=== PATIENT | male | born 1970 | race Caucasian/White ===

== ENCOUNTER 2019-02-21 15:32 | Emergency (ER) | payer MEDICARE, SELFPAY ==
[2019-02-21 15:37] VITALS: BP 116/80; PULSE 81; RESP 16; TEMP 36.9; O2SAT 98; BMI 21.6
[2019-02-21 16:05] VITALS: BP 120/75; PULSE 77; RESP 14; O2SAT 97
--- NOTE | 2019-02-21 16:24 | EKG12_ITS ---
Test Reason : CP Blood Pressure : / mmHG Vent. Rate : 075 BPM Atrial Rate : 075 BPM P-R Int : 140 ms QRS Dur : 108 ms QT Int : 386 ms P-R-T Axes : 042 105 084 degrees QTc Int : 431 ms Sinus rhythm with occasional Premature ventricular complexes Rightward axis Borderline ECG Confirmed by CASSANDRA HASTINGS, ETIENNE ([id number]), acquisition editor GEOFFREY LINTON ([id number]) on 02/23/2019 2:06:55 PM Referred By: Francoise Martínez Confirmed By:ETIENNE TRUJILLO MD
--- NOTE | 2019-02-21 16:25 | RAD_ITS ---
STUDY: X-RAY CHEST REASON FOR EXAM: Male, 49 years old. Cough, chest pain. TECHNIQUE: PA and lateral chest. COMPARISON: 07/30/2014. FINDINGS: The lungs are clear and expanded. There is no demonstrated pleural abnormality. Normal size heart. Normal mediastinum and lukasz. Normal visualized pulmonary arteries. Normal visualized aortic arch and descending thoracic aorta. Mild thoracic dextroscoliosis. Straightening of the normal thoracic kyphosis. Soft tissues and bony structures are otherwise unremarkable. RAD/Chest PA and Lateral IMPRESSION: Normal x-ray examination of the chest. Electronically Signed: Georgia Block MD at 16:54 EST Tel , Service support ,
[2019-02-21 16:48] LABS: Absolute Lymphocyte Count 1.83 X10^3/uL (0.83-4.51); Absolute Neutrophil Count 5.8 X10^3/uL (2.0-7.7); Basophil# 0.06 X10^3/uL; Basophil% 0.7 % (0-1); Eosinophil# 0.05 X10^3/uL; Eosinophils% 0.6 % (0-5); Hematocrit 41.6 % (40-54); Hemoglobin 14.2 g/dL (13.0-16.5); Lymphocyte # 1.83 X10^3/ul (4.0); Lymphocyte % 22.2 % (19-41); Mean Corp Hgb Conc 34.1 g/dL (32-36); Mean Corpuscular Hgb 32.8 pg (27.0-32.0); Mean Corpuscular Volume 96.1 fL (80-94); Monocyte% 6.1 % (0-10); NRBC Flagged by Analyzer 0 % (0-5); Neutrophil # 5.79 X10^3/uL (2.7-7.7); Neutrophil % 70.2 % (47-70); Platelet Count 349 K/mm3 (150-450); RBC Distribution Width CV 12.9 % (11.6-14.6); RBC Distribution Width SD 46.2 fl (35.1-43.9); Red Blood Count 4.33 M/mm3 (4.6-6.2); White Blood Count 8.3 K/mm3 (4.4-11.0)
[2019-02-21 17:02] LABS: Anion Gap 4 (5-15); BUN 13 mg/dL (7-18); BUN/Creat Ratio 12.4 RATIO (10-20); Calcium,Total 9.5 mg/dL (8.5-10.1); Chloride 108 mmol/L (98-107); Creatinine, Serum 1.05 mg/dL (0.70-1.30); EST Glomerular Filtration Rate 80 mL/min (>60); Est Glom Filt Rate - Afr Amer 97 mL/min (>60); Estimated Creatinine Clearance 85.56 ml/min; Glucose 156 mg/dL (74-106); Potassium 3.8 mmol/L (3.5-5.1); Sodium Level 140 mmol/L (136-145)
[2019-02-21 17:07] VITALS: BP 107/70; PULSE 69; RESP 13; O2SAT 99
[2019-02-21] MEDS: 0.9% Normal Saline 1,000 ML 999 ML IV (17:07)
--- NOTE | 2019-02-21 17:54 | ED.DCSUM_ITS ---
- ER Visit Summary Date of Service: 02/21/19 Chief Complaint: Cough and chest pain History of Present Illness: The patient is a [address] villarreal. He reports he has a cough began 1 month ago. Is productive of clear sputum. No blood. No fever chills. Does report that he has had night sweats. Patient reports that this is been accompanied by 1 month of constant chest pain. He describes it as a burning diffuse pain Zeta 10 at worst and 4-10 currently. Is increased with deep breaths, coughing, or laying on his left side. It is decreased with smoking or Sudafed. Physical Examination: Vitals: Stable. Afebrile. General: Well-nourished and well-developed. Head: Normocephalic atraumatic. Neck: Supple, no lymphadenopathy. No JVD. Nontender. Cardiovascular: Regular rate and rhythm. No murmurs. Respiratory: No respiratory distress. Clear to auscultation bilaterally. Abdominal: Soft, nontender, nondistended, normal bowel sounds. No guarding, rebound, or peritoneal signs. Back: Nontender. Extremities: Nontender, no edema. Skin: Normal color, no rash. Neurologic: Alert and oriented ?3. Cranial nerves II through XII are intact. Normal strength and sensation. Psych: Normal affect. Test Results: EKG is sinus at 75 with PVC. No acute ischemic changes. Troponins negative despite 1 month of constant pain. Chem-7 shows a chloride 108 and glucose 156. CBC is normal. Chest x-ray is normal. Emergency Department Course and Treatment: Patient was treated with an albuterol MDI. He refused prednisone. He is resting comfortably. Treatment Plan: Patient will be discharged with albuterol and Zithromax. Instructed follow-up his primary care physician in 3 to 5 days for another exam. Return to the emergency department for any worsening symptoms. Disposition: To home in improved and stable condition. Impression: 1. URI. 2. Tobacco abuse. This note was generated with [employer] dictation software. It may contain incorrect words, spelling, and punctuation that were not noted in review of the chart prior to signing ED Disposition - Plan for ED Patient: Disposition: Home or Assisted Living Instructions: CHEST PAIN, Uncertain Cause Prescriptions: Azithromycin [Zithromax Z-Tima] 250 mg PO UD #1 box Prescription Printed Referrals: Francoise Villarreal, [Primary Care Provider] - 1 Week if not improving
[2019-02-21 18:14] VITALS: BP 107/72; PULSE 62; RESP 18
== END 2019-02-21 18:17 | disposition home or self-care (01) ==
LOC: ED 16:41
PROVIDERS: Emergency Provider Emergency Medicine; PCP Family Medicine; Referring Provider Family Medicine
DX: J06.9 Acute upper respiratory infection, unspecified (principal); F17.200 Nicotine dependence, unspecified, uncomplicated; F25.9 Schizoaffective disorder, unspecified
CPT/HCPCS: 71046; 80048; 84484; 85025; 93005; 96360; 99285; J7030; A4216

== ENCOUNTER 2020-07-30 08:34 | Emergency (ER) | payer MEDICARE, MEDICAID, SELFPAY ==
[2020-07-30] VITALS (11 sets, daily range): BP systolic 105–159; BP diastolic 58–87; PULSE 60–73; RESP 12–18; TEMP 36.3–37.1; O2SAT 93–100; BMI 18.8
[2020-07-30 09:18] LABS: Absolute Lymphocyte Count 3.51 X10^3/uL (0.83-4.51); Absolute Neutrophil Count 2.3 X10^3/uL (2.0-7.7); Basophil# 0.08 X10^3/uL; Basophil% 1.2 % (0-1); Eosinophil# 0.25 X10^3/uL; Eosinophils% 3.6 % (0-5); Hematocrit 40.9 % (40-54); Hemoglobin 13.8 g/dL (13.0-16.5); Lymphocyte # 3.51 X10^3/ul (0.83-4.51); Lymphocyte % 51.1 % (19-41); Mean Corp Hgb Conc 33.7 g/dL (32-36); Mean Corpuscular Hgb 32.6 pg (27.0-32.0); Mean Corpuscular Volume 96.7 fL (80-94); Mean Platelet Vol. 9.2 fl (6.2-12.0); Monocyte# 0.71 X10^3/uL; Monocyte% 10.3 % (0-10); NRBC Flagged by Analyzer 0 % (0-5); Neutrophil # 2.31 X10^3/uL (2.7-7.7); Neutrophil % 33.7 % (47-70); Platelet Count 376 K/mm3 (150-450); RBC Distribution Width CV 13.5 % (11.6-14.6); RBC Distribution Width SD 48.6 fl (35.1-43.9); Red Blood Count 4.23 M/mm3 (4.6-6.2); White Blood Count 6.9 K/mm3 (4.4-11.0)
[2020-07-30 09:30] LABS: Anion Gap 6 (5-15); BUN 13 mg/dL (7-18); BUN/Creat Ratio 14.3 RATIO (10-20); Calcium,Total 9.1 mg/dL (8.5-10.1); Chloride 108 mmol/L (98-107); Creatinine, Serum 0.91 mg/dL (0.70-1.30); EST Glomerular Filtration Rate 94 mL/min (>60); Est Glom Filt Rate - Afr Amer 114 mL/min (>60); Estimated Creatinine Clearance 85.05 ml/min; Glucose 90 mg/dL (74-106); Potassium 4.1 mmol/L (3.5-5.1); Sodium Level 142 mmol/L (136-145)
[2020-07-30 09:38] LABS: Alcohol, Blood (Medical)-Serum < 3.0 mg/dL
--- NOTE | 2020-07-30 09:38 | ED.DCSUM_ITS ---
History of Present Illness Chief Complaint: Suicidal Informant: Patient Narrative: 50-year-old male presenting with history of schizoaffective disorder. He states he is on Haldol 0.5 mg daily, Lyrica 200 mg 3 times daily, Zoloft 150 g daily. He states that he was brought after [place] PD picked him up for taking 100 Klonopin. Apparently his family called to send. He states he was hoping not to wake up. He states that he is not specifically suicidal or homicidal. He just wants his spirit to leave his body because he wants to leave this meat puppet. He gets ramped up and feel his family is retarded. He describes having issues with politics and especially liberal politics and that his family supports divided and he thinks they are delusional. This makes him more concerned and he ramps up further. He states that he had an old prescription of Klonopin for which he took 0.5 mg x 15 last night at midnight. He denies acetaminophen or salicylates. He states that his psychiatric physician is Dr. Christiansen. Patient also admits to smoking prescribed cannabis. - Past Medical History (1) Schizoaffective disorder Status: Chronic Past Medical History - Allergies and Home Meds Allergies/Adverse Reactions: Allergies benztropine mesylate [From Cogentin] Allergy (Verified 07/30/20 08:36) Unknown carbamazepine [From Tegretol] Allergy (Verified 07/30/20 08:36) Other seizures ketamine Allergy (Verified 07/30/20 08:36) Anaphylaxis prednisone Allergy (Verified 07/30/20 08:36) Other Primary Care Physician: Francoise Martínez DO [Primary Care Provider] - Prior records reviewed: Yes Past Medical History: - - Schizoaffective disorder Surgical History: noncontributory Lives: Spouse/ Significant Other Smoking Status: Current every day smoker Alcohol: Heavy Drugs: None Review of Systems General: Denies: Chills, Fever, Sweats Eyes: Denies: Visual changes - bilaterally, Diplopia ENT: Denies: Rhinorrhea, Sore throat Cardiovascular: Denies: Chest pain, Palpitations, Heart racing Respiratory: Denies: Dyspnea, Cough, Sputum Gastrointestinal: Denies: Abdominal pain, Nausea, Vomiting Genitourinary: Denies: Dysuria, Hematuria Musculoskeletal: Denies: Myalgias, Arthralgias Skin: Denies: Rash, Abscess Neurological: Denies: Headache, Weakness, Parasthesia Psych: Reports: Anxiety, Suicidal thoughts, Suicidal ideations, - - No homicidal ideations. No hallucinations. Hearing voices. Endocrine: Denies: Polyuria, Polydipsia Hematologic: Denies: Easy bruising, Easy bleeding Physical Exam Vital Signs/Narrative: Vital Signs Temp Pulse Resp BP Pulse Ox 07/30/20 08:36 97.3 F L 63 14 134/73 H 98 Inital Vital Signs reviewed: Yes General: Well nourished, No Acute Distress Head: Normocephalic, Atraumatic Eyes: Perrl, EOMI ENT: Moist mucous membranes, No rhinorrhea Cardiovascular: Regular rate, Regular rhythm Respiratory: No distress, CTA bilaterally Abdomen: Soft, Nontender, Nondistended Back: - - Mild generalized lower back pain without midline spinal deformity, step-off. Extremities: Nontender, No edema Skin: Normal color, No rash. Negative for: Cyanosis, Diaphoresis, Jaundice, Pallor Neurological: Alert, Oriented x3, Cranial nerves II-XII grossly intact Psychological: Normal affect, Normal Mood Diagnostic/Tx/Re-eval Laboratory Data 07/30/20 07/30/20 07/30/20 08:55 08:55 08:55 WBC 6.9 RBC 4.23 L Hgb 13.8 Hct 40.9 MCV 96.7 H MCH 32.6 H MCHC 33.7 RDW Std Deviation 48.6 H RDW Coeff of Amy 13.5 Plt Count 376 MPV 9.2 Immature Gran % (Auto) 0.100 Neut % (Auto) 33.7 L Lymph % (Auto) 51.1 H Union % (Auto) 10.3 H Eos % (Auto) 3.6 Baso % (Auto) 1.2 H Absolute Neuts (auto) 2.3 Absolute Lymphs (auto) 3.51 Nucleated RBC % 0 Sodium 142 Potassium 4.1 Chloride 108 H Carbon Dioxide 28.0 Anion Gap 6 BUN 13 Creatinine 0.91 Estim Creat Clear Calc 85.05 Est GFR (MDRD) Af Amer 114 Est GFR (MDRD) Non-Af 94 BUN/Creatinine Ratio 14.3 Glucose 90 Calcium 9.1 Total Bilirubin Direct Bilirubin AST ALT Alkaline Phosphatase Total Protein Albumin Globulin Salicylates Urine Opiates Screen Urine Methadone Screen Acetaminophen Ur Barbiturates Screen Ur Phencyclidine Scrn Ur Amphetamines Screen U Methamphetamin-MDMA U Benzodiazepines Scrn Urine Cocaine Screen U Cannabinoids Screen Ur Drug Screen Comment Ethyl Alcohol < 3.0 07/30/20 07/30/20 07/30/20 08:55 08:55 08:55 WBC RBC Hgb Hct MCV MCH MCHC RDW Std Deviation RDW Coeff of Amy Plt Count MPV Immature Gran % (Auto) Neut % (Auto) Lymph % (Auto) Union % (Auto) Eos % (Auto) Baso % (Auto) Absolute Neuts (auto) Absolute Lymphs (auto) Nucleated RBC % Sodium Potassium Chloride Carbon Dioxide Anion Gap BUN Creatinine Estim Creat Clear Calc Est GFR (MDRD) Af Amer Est GFR (MDRD) Non-Af BUN/Creatinine Ratio Glucose Calcium Total Bilirubin 0.30 Direct Bilirubin 0.09 AST 38 H ALT 29 Alkaline Phosphatase 85 Total Protein 7.0 Albumin 3.8 Globulin 3.2 Salicylates 3.8 Urine Opiates Screen Urine Methadone Screen Acetaminophen < 2.0 L Ur Barbiturates Screen Ur Phencyclidine Scrn Ur Amphetamines Screen U Methamphetamin-MDMA U Benzodiazepines Scrn Urine Cocaine Screen U Cannabinoids Screen Ur Drug Screen Comment Ethyl Alcohol 07/30/20 10:42 WBC RBC Hgb Hct MCV MCH MCHC RDW Std Deviation RDW Coeff of Amy Plt Count MPV Immature Gran % (Auto) Neut % (Auto) Lymph % (Auto) Union % (Auto) Eos % (Auto) Baso % (Auto) Absolute Neuts (auto) Absolute Lymphs (auto) Nucleated RBC % Sodium Potassium Chloride Carbon Dioxide Anion Gap BUN Creatinine Estim Creat Clear Calc Est GFR (MDRD) Af Amer Est GFR (MDRD) Non-Af BUN/Creatinine Ratio Glucose Calcium Total Bilirubin Direct Bilirubin AST ALT Alkaline Phosphatase Total Protein Albumin Globulin Salicylates Urine Opiates Screen NEGATIVE Urine Methadone Screen NEGATIVE Acetaminophen Ur Barbiturates Screen NEGATIVE Ur Phencyclidine Scrn NEGATIVE Ur Amphetamines Screen NEGATIVE U Methamphetamin-MDMA NEGATIVE U Benzodiazepines Scrn NEGATIVE Urine Cocaine Screen NEGATIVE U Cannabinoids Screen POSITIVE H Ur Drug Screen Comment Ethyl Alcohol - Medical Decision Making Patient's lab work and imaging is unremarkable. Patient's urine drug screen does not even show benzodiazepines in it. Patient's vital signs are stable and he is afebrile. Chest x-ray is interpreted by myself shows no acute cardiopulmonary process and radiologist agree. Rapid Covid negative. Given patient's suicide attempt low he does not call it a suicide attempt I think the patient would benefit from inpatient treatment. Patient was discussed with corrections caseworker who will attempt to get him placed. Patient medically cleared at this time. Patient eventually became agitated and was asking for his marijuana to be delivered to the ER. He was also requesting narcotics, however did not feel comfortable given he stated that he overdosed on medications and we are still monitoring for this. He was given a Lidoderm patch. At this point he was trying to get out of his room and had to be restrained. It took 5 nurses to hold him down and put him into restraints. Patient began coughing and spitting at people. He did scratch my arm with his fingernail. He was then given Geodon to calm him down. He is currently resting comfortably. He will have to be monitored and be out of restraints for 4 hours before he can be transferred. Patient will be signed out to incoming ED physician for monitoring until transfer. Impression: 1. Suicide attempt 2. History of schizoaffective disorder ED Disposition - Plan for ED Patient: Disposition: Psychiatric Hospital or Unit Referrals: Francoise Martínez DO [Primary Care Provider] -
[2020-07-30 09:44] LABS: Salicylate 3.8 mg/dL (2.8-20.0)
[2020-07-30 09:49] LABS: Acetaminophen (Tylenol) Level < 2.0 ug/mL (10.0-30.0)
[2020-07-30 09:52] LABS: AST(SGOT) 38 U/L (15-37); Alanine Aminotransfer ALT/SGPT 29 U/L (16-61); Albumin, Serum 3.8 g/dL (3.2-5.0); Alkaline Phosphatase 85 U/L (45-117); Bilirubin, Direct 0.09 mg/dL (0.00-0.30); Globulin 3.2 g/dL (2.2-4.2)
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
[2020-07-30 11:06] LABS: Amphetamine Urine VISTA NEGATIVE (<1000 ng/mL); Barbiturate Urine VISTA NEGATIVE (< 200 ng/mL); Benzodiazepine Urine VISTA NEGATIVE (< 200 ng/mL); Cocaine Urine VISTA NEGATIVE (< 300 ng/mL); Ecstacy Urine VISTA NEGATIVE (< 500 ng/mL); Methadone Urine VISTA NEGATIVE (< 300 ng/mL); PCP Urine VISTA NEGATIVE (< 25 ng/mL); THC Urine VISTA POSITIVE (< 50 ng/mL); Vista UDS pH Range 6
--- NOTE | 2020-07-30 11:31 | ED.RN ---
offered pt lunch tray at this time but does not want bc his stomach is hurting.
--- NOTE | 2020-07-30 11:38 | CM.ED ---
SOCIAL WORK Referral called and faxed to Estefani with [facility]. Pending review at this time. Jose Manuel Schmid, ANTISQUEAK CHALKER, SUPERVISOR BREW HOUSE
--- NOTE | 2020-07-30 12:21 | CM.ED ---
SOCIAL WORK Patient accepted to [facility] by Dr. Camacho. Nurse to call report to [phone]. [facility] to call and check on transport through [facility]. Patient and nurse updated on acceptance to [facility]. Jose Manuel Schmid, JOINT SUPERVISOR, DRILL RUNNER
--- NOTE | 2020-07-30 12:25 | CM.ED ---
SOCIAL WORK Nurse arranged transport through [facility] who will arrive in 30 minutes. Call to [facility] with [facility] to eileen. Jose Manuel Schmid, HEAVY THREADER, HORSE STUD MANAGER
[2020-07-30] MEDS: Pregabalin 50 MG Capsule 200 MG PO (12:39)
[2020-07-30] MEDS: Lidocaine 5% Patch 1 PATCH TOPICAL (13:00)
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
[2020-07-30] MEDS: Ziprasidone IM 20 MG/ML VIAL IM (13:32)
--- NOTE | 2020-07-30 13:55 | CM.ED ---
SOCIAL WORK Call to patient's . No answer, left message with this worker's call back information. Jose Manuel Schmid, TANK PUMPER, METROLOGY TECHNICIAN
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
--- NOTE | 2020-07-30 17:47 | ED.RN ---
restraints removed entirely at 1600. social work aware.
--- NOTE | 2020-07-30 20:05 | ED.RN ---
pt has had restraints off completely since 1600 and resting comfortably. When he awakens, he uses urinal and returns to resting. sitter remains at bedside. also at bedside at this time.
--- NOTE | 2020-07-30 20:15 | CM.ED ---
SOCIAL WORK Call to [facility] to discuss referral. Informed patient has been out of restraints for 4 hours. Intake to re-review referral. Referral also faxed to [facility], pending review at this time. Jose Manuel Schmid, FIELD SUPERVISOR, TOBACCO FEEDER CATCHER
--- NOTE | 2020-07-30 20:46 | CM.ED ---
SOCIAL WORK Call from [facility] requesting verbal update. All questions answered. Intake to review with physician and call this worker back. Jose Manuel Schmid, PIPE MANUFACTURE SUPERVISOR, NUCLEAR WORKER TECHNICIAN
--- NOTE | 2020-07-30 21:17 | CM.ED ---
SOCIAL WORK Call from Janee with [facility]. Patient accepted. [facility] to set up transport. Jose Manuel Schmid, PLACEMENT ASSISTANT, INDUSTRIAL THERAPIST
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
--- NOTE | 2020-07-30 22:48 | ED.RN ---
VOICEMAIL LEFT BY THIS RN FOR [facility] TO GIVE [facility] ED A CALL BACK FOR PT UPDATE
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
[2020-07-30] MEDS: Ziprasidone IM 20 MG/ML VIAL 10 MG IM (23:55)
[2020-07-31] VITALS (7 sets, daily range): BP systolic 117–146; BP diastolic 66–79; PULSE 69–74; RESP 12–15; O2SAT 93–99
--- NOTE | 2020-07-31 00:22 | ED.DCSUM_ITS ---
- ER Visit Summary Date of Service: 07/31/20 Chief Complaint: Combative behavior History of Present Illness: The patient is a 50 M who was transferred from the ED to his psychiatric facility prior to my arrival this evening. He had told the previous doctor he wants his. To leave his body. He has political complaints and paranoia. He was combative on the way to the psychiatric facility and required ketamine for sedation. He was brought back to the ED. No other complaints. Physical Examination: Afebrile and vital signs unremarkable. Head and neck atraumatic. Patient is agitated. Heart regular. Lungs clear. Abdomen soft. Skin intact. Test Results: CBC, CMP unremarkable. COVID-19 test negative. Salicylates and acetaminophen negative. Alcohol negative. Tox screen positive for marijuana. Emergency Department Course and Treatment: Patient required restraints. [id number] was performed. Required additional sedation with Geodon. Patient has already had medical clearance. We will continue to monitor and administer emergency medicines as needed. Awaiting further placement. From a medical standpoint, he is cleared for transfer and placement currently. Treatment Plan: As above Disposition: Pending Impression: Combative behavior, schizoaffective disorder This note was generated with [employer] dictation software. It may contain incorrect words, spelling, and punctuation that were not noted in review of the chart prior to signing ED Disposition - Plan for ED Patient: Disposition: Psychiatric Hospital or Unit Referrals: Francoise Martínez DO [Primary Care Provider] -
--- NOTE | 2020-07-31 08:39 | ED.RN ---
SEE DOWNTIME DOCUMENTATION
--- NOTE | 2020-07-31 08:50 | ED.RN ---
Pt had restraints removed. pt given coffee. pt verbalized understanding of need to remain calm and cooperative.
--- NOTE | 2020-07-31 09:03 | ED.RN ---
pt sitting up in bed drinking coffee, pt cooperative with this RN and sitter.
--- NOTE | 2020-07-31 10:21 | CM.ED ---
SOCIAL WORK Call to Crisis to check on status of referral for placement as Crisis was called last evening to assist with placement needs due to end of shift for SW. Left message, awaiting call back. Jose Manuel Schmid, CLINICAL SERVICES MANAGER, LEAD APPLIER
[2020-07-31] MEDS: Pregabalin 50 MG Capsule 200 MG PO (11:01)
[2020-07-31] MEDS: Sertraline 100 MG Tablet PO (11:01)
--- NOTE | 2020-07-31 11:01 | CM.ED ---
SOCIAL WORK Discussed referral with [facility]. Per Intake, Patient with to acute. Call to [facility]. Referral faxed, pending review at this time. Per Crisis, referral pending at [facility] [place], COACH
--- NOTE | 2020-07-31 13:01 | CM.ED ---
SOCIAL WORK Call to [facility] to check on status of referral. Intake reviewing and will get back to this worker. Jose Manuel Schmid, TOOL FILER, UNDERWRITER SOLICITATION DIRECTOR
--- NOTE | 2020-07-31 14:17 | EX.ED.DYSGE1 ---
HPI History of Present Illness Chief Complaint: Suicidal PFSH PFSH Home Medications haloperidol 0.5 mg PO QHS 07/30/20 [History Last Taken Unknown] pregabalin 200 mg PO TID 07/30/20 [History Last Taken Unknown] sertraline 100 mg PO DAILY 07/30/20 [History Last Taken Unknown] Allergy/AdvReac Type Severity Reaction Status Date / Time benztropine mesylate Allergy Unknown Verified 07/31/20 10:05 [From Cogentin] carbamazepine [From Tegretol] Allergy Other Verified 07/31/20 10:05 ketamine Allergy Anaphylaxis Verified 07/31/20 10:05 prednisone Allergy Other Verified 07/31/20 10:05 Social History Smoking Status: Current every day smoker EXAM Physical Exam Const Vital Signs: 07/30/20 16:04 07/30/20 17:26 07/30/20 18:33 Temperature 98.7 F Temperature Source Temporal Pulse Rate 65 60 Respiratory Rate 14 16 18 Blood Pressure 145/63 H 105/66 Blood Pressure Mean 90 79 Pulse Ox 94 93 Oxygen Delivery Method Room Air Room Air 07/30/20 20:06 07/30/20 21:25 07/30/20 22:53 Temperature 98.7 F 98.6 F Temperature Source Temporal Pulse Rate 67 62 73 Respiratory Rate 16 14 12 Blood Pressure 118/58 L 114/66 117/74 Blood Pressure Mean 78 82 88 Pulse Ox 95 95 99 Oxygen Delivery Method Room Air Room Air 07/31/20 00:00 07/31/20 01:00 07/31/20 10:12 Temperature Temperature Source Pulse Rate 69 74 Respiratory Rate 15 12 14 Blood Pressure 146/68 H 134/66 H Blood Pressure Mean 94 88 Pulse Ox 97 99 Oxygen Delivery Method Room Air Room Air 07/31/20 11:08 07/31/20 13:38 Temperature Temperature Source Pulse Rate 69 Respiratory Rate 12 14 Blood Pressure 117/79 Blood Pressure Mean 91 Pulse Ox 93 Oxygen Delivery Method Room Air MDM MDM MDM Narrative Medical decision making narrative: Patient was endorsed to me by the outgoing physician pending psychiatric placement. Throughout the duration of my shift the patient was cooperative, and did not require any additional physical or chemical restraints. He was given his typical daytime medications. Patient will be signed out to the oncoming provider pending psychiatric placement. Discharge Plan Triage Chief Complaint: Suicidal ED Provider: Farshad Thomas Dx/Rx/DC Orders Prescriptions: No Action haloperidol 0.5 MG tablet 0.5 mg PO QHS RF: 0 sertraline 100 MG tablet 100 mg PO DAILY RF: 0 pregabalin 200 MG capsule 200 mg PO TID RF: 0 Primary Care Provider: Francoise Martínez Referrals: Francoise Martínez DO [Primary Care Provider] - Disposition Patient Disposition: Psychiatric Hospital or Unit
--- NOTE | 2020-07-31 14:51 | CM.ED ---
SOCIAL WORK Call from [facility] reporting will be able to accept patient. Requesting copy of [place] be faxed and will call this worker back with accepting information once received. [place] faxed at this time. Jose Manuel Schmid MSW, GOLF PLAYER ASSISTANT
--- NOTE | 2020-07-31 15:23 | CM.ED ---
SOCIAL WORK Call to [facility] to confirm copy of [place] Slip received, spoke with Estefani. Per Estefani, unable to get ahold of foster care worker. Will call this worker back. Awaiting call back with accepting information at this time. Jose Manuel Schmid, AUTO OVERHAULER, TROLLEY WORKER
--- NOTE | 2020-07-31 15:23 | EX.ED.DYSGE1 ---
HPI History of Present Illness Chief Complaint: Suicidal PFSH PFSH Home Medications haloperidol 0.5 mg PO QHS 07/30/20 [History Last Taken Unknown] pregabalin 200 mg PO TID 07/30/20 [History Last Taken Unknown] sertraline 100 mg PO DAILY 07/30/20 [History Last Taken Unknown] Allergy/AdvReac Type Severity Reaction Status Date / Time benztropine mesylate Allergy Unknown Verified 07/31/20 10:05 [From Cogentin] carbamazepine [From Tegretol] Allergy Other Verified 07/31/20 10:05 ketamine Allergy Anaphylaxis Verified 07/31/20 10:05 prednisone Allergy Other Verified 07/31/20 10:05 Social History Smoking Status: Current every day smoker EXAM Physical Exam Const Vital Signs: 07/30/20 17:26 07/30/20 18:33 07/30/20 20:06 Temperature 98.7 F Temperature Source Temporal Pulse Rate 65 60 67 Respiratory Rate 16 18 16 Blood Pressure 145/63 H 105/66 118/58 L Blood Pressure Mean 90 79 78 Pulse Ox 94 93 95 Oxygen Delivery Method Room Air Room Air Room Air 07/30/20 21:25 07/30/20 22:53 07/31/20 00:00 Temperature 98.7 F 98.6 F Temperature Source Temporal Pulse Rate 62 73 69 Respiratory Rate 14 12 15 Blood Pressure 114/66 117/74 146/68 H Blood Pressure Mean 82 88 94 Pulse Ox 95 99 97 Oxygen Delivery Method Room Air Room Air 07/31/20 01:00 07/31/20 10:12 07/31/20 11:08 Temperature Temperature Source Pulse Rate 74 Respiratory Rate 12 14 12 Blood Pressure 134/66 H Blood Pressure Mean 88 Pulse Ox 99 Oxygen Delivery Method Room Air 07/31/20 13:38 07/31/20 14:24 07/31/20 15:30 Temperature Temperature Source Pulse Rate 69 Respiratory Rate 14 14 12 Blood Pressure 117/79 Blood Pressure Mean 91 Pulse Ox 93 Oxygen Delivery Method Room Air [facility] Treatment and Re-Evaluation Comments:: Resting comfortably for the last hour after checkout. Patient is to go to [facility] psychiatric facility. Awaiting transportation. Discharge Plan Triage Chief Complaint: Suicidal ED Provider: Matt Vega Dx/Rx/DC Orders Clinical Impression: Psychosis Prescriptions: No Action haloperidol 0.5 MG tablet 0.5 mg PO QHS RF: 0 sertraline 100 MG tablet 100 mg PO DAILY RF: 0 pregabalin 200 MG capsule 200 mg PO TID RF: 0 Primary Care Provider: Francoise Martínez Referrals: Francoise Martínez DO [Primary Care Provider] - Disposition Patient Disposition: Psychiatric Hospital or Unit Discharge Location: [facility]
--- NOTE | 2020-07-31 16:00 | CM.ED ---
SOCIAL WORK Patient accepted to [facility]. Customer Service Analyst to set up transport. Jose Manuel Schmid, HEALTHCARE TRANSLATOR, MOTOR EQUIPMENT SERGEANT
[2020-07-31] MEDS: oxyCODONE 5 MG Tablet PO (16:51)
== END 2020-07-31 16:49 ==
PROVIDERS: Student in an Organized Health Care Education/Training Program; Emergency Provider Emergency Medicine; PCP Family Medicine
DX: T14.91XA Suicide attempt, initial encounter (principal); T42.4X2A Poisoning by benzodiazepines, intentional self-harm, initial encounter; Y92.9 Unspecified place or not applicable; Y93.89 Activity, other specified; Y99.9 Unspecified external cause status; R45.1 Restlessness and agitation; R45.6 Violent behavior; F25.9 Schizoaffective disorder, unspecified; F29 Unspecified psychosis not due to a substance or known physiological condition; F17.200 Nicotine dependence, unspecified, uncomplicated; Z79.899 Other long term (current) drug therapy
CPT/HCPCS: 80048; 80076; 80307; 80329; 82077; 85025; 87426; 93005; 96372; 99285; A4216; G0480; J3486

== ENCOUNTER 2021-04-13 23:04 | Emergency (ER) | payer MEDICARE, MEDICAID, SELFPAY ==
[2021-04-13 23:05] VITALS: TEMP 36.1; BMI 25.1
--- NOTE | 2021-04-13 23:08 | EKG12_ITS ---
Test Reason : SUICIDAL Blood Pressure : / mmHG Vent. Rate : 097 BPM Atrial Rate : 097 BPM P-R Int : 162 ms QRS Dur : 108 ms QT Int : 380 ms P-R-T Axes : 065 099 080 degrees QTc Int : 482 ms Normal sinus rhythm Normal ECG Confirmed by CASSANDRA HASTINGS, ETIENNE ([id number]), online content editor LATISHA FERRERA ([id number]) on 04/16/2021 1:31:54 PM Referred By: BRITTON Confirmed By:ETIENNE TRUJILLO MD
[2021-04-13] MEDS: Haloperidol Lactate 5 MG/ML Vial 2 MG IM (23:13)
[2021-04-13] MEDS: LORazepam 2 MG/ML Syringe IM (23:14)
[2021-04-13] MEDS: Midazolam 2 MG/2 ML Syringe IM (23:14)
--- NOTE | 2021-04-13 23:22 | EX.ED.VIS.PS ---
HPI HPI - Psych History of Present Illness Chief Complaint: Suicidal Detail of Chief Complaint: Agitated, depressed, delusional and suicidal Informant: patient, EMS and police/administrative technician Limited: intoxicated (Officer stated he smelled alcohol.) Onset/Context/Timing Onset: - (Uncertain. He apparently voiced to his daughter that he planned on killing himself to save his who is dying of terminal cancer.) Conflict: Family Current Severity: Severe Maximum Severity: Severe Worsened by: Situational factors and Alcohol intoxication Relieved by: Nothing Associated Symptoms Associated Symptoms - Psych: Positive for Depressed, Change in Eating, Decreased Interest, Guilt, Suicidal Thoughts, Increased activity, Agitated, Angry, Hostile and Threatening; Negative for Grandiosity, Flight of Ideas and Pressured Speech Specific plan (suicidal thought): Per police sergeant precinct and daughter nothing was voiced. Patient presently agit Narrative Narrative: Patient is a 51-year-old male with history of schizoaffective disorder, depression, prior suicidal attempt who was brought to the hospital by law enforcement and EMS. Patient presently agitated aggressive threatening. He arrived in handcuffs. He lunged and attempt to get out of bed. He was agitated and told law enforcement you stupid fucking pigs are keeping me from my . Patient did acknowledge that his is dying of cancer. History is limited due to his agitated state. Prior similar symptoms: Yes Recent Illness/Hospitalization: Yes PFSH PFSH Medical History unable to obtain Home Medications haloperidol 0.5 mg PO QHS 07/30/20 [History Last Taken Unknown] pregabalin 200 mg PO TID 07/30/20 [History Last Taken Unknown] sertraline 100 mg PO DAILY 07/30/20 [History Last Taken Unknown] Allergy/AdvReac Type Severity Reaction Status Date / Time benztropine mesylate Allergy Unknown Verified 07/31/20 10:05 [From Cogentin] carbamazepine [From Tegretol] Allergy Other Verified 07/31/20 10:05 ketamine Allergy Anaphylaxis Verified 07/31/20 10:05 prednisone Allergy Other Verified 07/31/20 10:05 Surgical History unable to obtain Social History (Updated 04/13/21 @ 23:[address] Case Medina MD) household members: spouse Smoking Status: Current every day smoker tobacco type: cigarettes alcohol intake: current alcohol intake frequency: other ROS ROS ED Review of Systems ROS Unobtainable: due to mental condition and due to mental status EXAM Physical Exam Const Vital Signs: 04/13/21 23:05 04/13/21 23:35 04/14/21 00:54 Temperature 97.0 F L Temperature Source Temporal Pulse Rate 112 H 94 Respiratory Rate 24 H 18 Blood Pressure 104/82 H 104/74 Blood Pressure Mean 89 84 Pulse Ox 95 94 Oxygen Delivery Method Room Air Room Air 04/14/21 02:21 04/14/21 03:45 04/14/21 04:52 Temperature Temperature Source Pulse Rate 76 82 90 Respiratory Rate 16 16 14 Blood Pressure 179/131 H 88/66 L 86/65 L Blood Pressure Mean 147 73 72 Pulse Ox 93 98 93 Oxygen Delivery Method Room Air Room Air Room Air 04/14/21 05:46 04/14/21 06:18 Temperature Temperature Source Pulse Rate 87 Respiratory Rate 13 14 Blood Pressure 94/66 Blood Pressure Mean 75 Pulse Ox 92 Oxygen Delivery Method Room Air Positive well nourished and well developed; Negative for obese, cachectic, contractures or unkempt General Appearance ED: well developed, irritable and other Patient is agitated, verbally abusive, lunging at staff. ; Negative for unkempt, cachectic, contractures, NAD or pallor Nutritional Appearance: Negative for cachectic or obese HEENT normocephalic and atraumatic; Negative for trauma or tenderness Eyes PERRL and EOMs intact bilaterally Eyes Narrative: Pupils are dilated. General Eye ED: Negative for pale conjunctiva or scleral icterus Neck no lymphadenopathy and supple Resp normal respiratory effort and clear to auscultation bilaterally Cardio S1 normal heart sound, S2 normal heart sound and no murmurs Rate: regular rate Rhythm: regular rhythm GI non-tender and non-distended Palpation: soft Extremity normal to inspection General Extremety ED: Negative for edema General Extremity: Negative for edema Neuro CN's II-XII intact bilaterally Neuro Narrative: No clonus or Babinski sign noted right or left [place] Coma Scale: document GCS findings Spontaneous Obeys Commands Oriented 15 Sensorium / Orientation: alert Sensory Exam: sensory level loss detected Motor Exam: strength 5/5 throughout Psych Negative for mental status grossly normal, thought process normal, cooperative, affect normal, speech normal, activity/motor behavior normal, denies hallucinations, denies homicidal ideation or denies suicidal ideation Psych Narrative: Per law enforcement he voiced of his daughter that he was going to harm himself Appearance: grossly normal; Negative for appropriate or unkempt Attitude: uncooperative, agitated, aggressive and hostile Activity / Motor Behavior: psychomotor agitation and restless; Negative for appropriate eye contact Speech: rapid and loud Mood & Affect: depressed, euphoric, irritable, labile affect and hostile affect Thought Process: other Difficult to assess Thought Content: other Presently unable to determine Attention / Concentration: attention grossly impaired; Negative for attention grossly intact or concentration grossly intact Insight: questionable Judgement: questionable Skin General Skin Exam: Negative for jaundice or pallor Lesions: no lesions Rashes: no rashes MDM MDM MDM Narrative Medical decision making narrative: With dilated pupils, agitation concern patient may be under the influence of a sympathomimetic. Since he has prior psychiatric hospitalizations and prior suicide attempt and voicing to his daughter that he wishes to the prevent of his will order appropriate laboratory tests to medically clear patient for psychiatric admission Since patient was agitated and allergies were unknown and meds were unknown and concerned that he may have taken a sympathomimetic initially Ativan and Versed were ordered. After reviewing his records and determining that he is on Haldol he received IM Haldol as well. He was placed in four-point restraints. This was for his protection as well as the protection of the staff. Blood pressure is 88/66. Of note patient is asleep. We will continue to monitor. Order for four-point restraints was reissued at 0300. Patient is no longer agitated. He is sleepy. Restraints were removed by nursing per protocol. Patient is presently resting quietly. Awaiting repeat alcohol that was obtained 6 hours after initial alcohol level to determine rate of metabolism and when patient meets criteria for licensed veterinary technician to see him. ([id number]) Lab Data Attestation: I reviewed the patient's lab results. Lab results narrative: White count, differential and H&H are unremarkable. Urinalysis is unremarkable with no evidence of infection. Tox screen is negative. The whole level is elevated, 2-4. Comprehensive metabolic panel is remarkable for a CO2 of 15 with an anion gap of 18 which could be due to the elevated alcohol level. Liver enzymes are normal. Bilirubin is normal. Repeat alcohol is 93. Since this is below 100 mental health has been consulted. The licensed veterinary technician from the crisis center spoke with me at 0631. She agrees patient needs inpatient therapy. She was informed that I did complete a pink sheet. She will contact facilities for admission. Labs: Laboratory Results - last 24 hr 04/13/21 04/13/21 04/13/21 13:40 13:40 23:35 WBC 9.1 RBC 4.53 L Hgb 14.6 Hct 44.0 MCV 97.1 H MCH 32.2 H MCHC 33.2 RDW Std Deviation 49.0 H RDW Coeff of Amy 13.6 Plt Count 414 MPV 9.0 Immature Gran % (Auto) 0.800 Neut % (Auto) 35.8 L Lymph % (Auto) 50.4 H Graham % (Auto) 10.0 Eos % (Auto) 2.2 Baso % (Auto) 0.8 Absolute Neuts (auto) 3.3 Absolute Lymphs (auto) 4.60 H Nucleated RBC % 0 Sodium Potassium Chloride Carbon Dioxide Anion Gap BUN Creatinine Estim Creat Clear Calc Est GFR (MDRD) Af Amer Est GFR (MDRD) Non-Af BUN/Creatinine Ratio Glucose Calcium Total Bilirubin AST ALT Alkaline Phosphatase Total Protein Albumin Globulin Albumin/Globulin Ratio Urine Color Yellow Urine Clarity Clear Urine pH 6.5 Ur Specific [place] 1.010 Urine Protein Negative Urine Glucose (UA) Normal Urine Ketones Negative Urine Occult Blood Negative Urine Nitrite Negative Urine Bilirubin Negative Urine Urobilinogen Normal Ur Leukocyte Esterase 25 H Urine RBC 0 SEEN Urine WBC 0-5 SEEN Ur Squamous Epith Cells 0 SEEN Urine Bacteria 0 SEEN Urine Mucus 0 SEEN Urine Opiates Screen NEGATIVE Urine Methadone Screen NEGATIVE Ur Barbiturates Screen NEGATIVE Ur Phencyclidine Scrn NEGATIVE Ur Amphetamines Screen NEGATIVE U Methamphetamin-MDMA NEGATIVE U Benzodiazepines Scrn NEGATIVE Urine Cocaine Screen NEGATIVE U Cannabinoids Screen NEGATIVE Ur Drug Screen Comment Ethyl Alcohol 04/13/21 04/13/21 04/14/21 23:35 23:35 05:10 WBC RBC Hgb Hct MCV MCH MCHC RDW Std Deviation RDW Coeff of Amy Plt Count MPV Immature Gran % (Auto) Neut % (Auto) Lymph % (Auto) Graham % (Auto) Eos % (Auto) Baso % (Auto) Absolute Neuts (auto) Absolute Lymphs (auto) Nucleated RBC % Sodium 144 Potassium 3.3 L Chloride 111 H Carbon Dioxide 15.0 L Anion Gap 18 H BUN 10 Creatinine 1.06 Estim Creat Clear Calc 86.08 Est GFR (MDRD) Af Amer 95 Est GFR (MDRD) Non-Af 79 BUN/Creatinine Ratio 9.4 L Glucose 73 L Calcium 9.1 Total Bilirubin 0.30 AST 22 ALT 24 Alkaline Phosphatase 91 Total Protein 7.4 Albumin 3.8 Globulin 3.6 Albumin/Globulin Ratio 1.1 Urine Color Urine Clarity Urine pH Ur Specific [place] Urine Protein Urine Glucose (UA) Urine Ketones Urine Occult Blood Urine Nitrite Urine Bilirubin Urine Urobilinogen Ur Leukocyte Esterase Urine RBC Urine WBC Ur Squamous Epith Cells Urine Bacteria Urine Mucus Urine Opiates Screen Urine Methadone Screen Ur Barbiturates Screen Ur Phencyclidine Scrn Ur Amphetamines Screen U Methamphetamin-MDMA U Benzodiazepines Scrn Urine Cocaine Screen U Cannabinoids Screen Ur Drug Screen Comment Ethyl Alcohol 224.0 93.0 EKG Initial EKG: Attestation: I personally reviewed and interpreted this EKG as follows: Interpretation: Sinus Rhythm (The EKG is normal. Normal sinus rhythm with ventricular rate 97. IA interval is 160 ms. Cures duration is 108 ms. QT duration 380 ms. Cash is normal.) Discharge Plan Triage Chief Complaint: Suicidal ED Provider: Case Medina Dx/Rx/DC Orders Clinical Impression: Depression with suicidal ideation, History of schizoaffective disorder, Acute alcoholic intoxication in alcoholism (blood level 0.08-0.29) Prescriptions: No Action haloperidol 0.5 MG tablet 0.5 mg PO QHS RF: 0 sertraline 100 MG tablet 100 mg PO DAILY RF: 0 pregabalin 200 MG capsule 200 mg PO TID RF: 0 Primary Care Provider: Francoise Martínez Referrals: Francoise Martínez DO [Primary Care Provider] - Disposition Disposition: Psychiatric Hospital or Unit Capacity Capacity Assessment Tool Can the patient make a choice & communicate that choice?: No Can the patient understand benefits, risks and alternatives?: No Can the patient make a logical, rational choice?: No Is the choice the patient makes consistent w/ their values?: Unable to Determine Is there an impending, emergent risk to the patient?: Unable to Determine Does the patient have an Advance Directive?: Unable to Determine Is there a Surrogate Available?: No i.e. HCPOA: Unable to Determine i.e. close relative (spouse, child, parent, sibling)?: No
[2021-04-13 23:35] VITALS: BP 104/82; PULSE 112; RESP 24; O2SAT 95
--- NOTE | 2021-04-13 23:45 | ED.RN ---
PT presents via [facility] cot with handcuffs on. Multiple police officers following. PT refusing all treatments. PT is combative and requires multiple hands to provide a safe environment. PT is making threats to staff. I will come and get you, Bitch! is a repetitive statement. MD at bedside. PT had clothes cut off as he was holding onto his clothes and preventing us from taking them off. PT swinging legs at staff, thrashing in bed and yelling obscenities. 911 was called by his mother at his home. PT states that his behavior is like this because 'they' made me stop my medical marijuana. PT states he is taking his medications. 4point restraints were placed, medication was given. Pending results. Will continue to monitor.
[2021-04-13 23:48] LABS: Bacteria 0 SEEN /hpf (None Seen); Mucous, Urine 0 SEEN /hpf (<or=2+); Red Blood Cells-Urine 0 SEEN /hpf (0-5); Squamous Epithelial Cells - UA 0 SEEN /hpf (0-5)
[2021-04-13 23:51] LABS: Absolute Neutrophil Count 3.3 X10^3/uL (2.0-7.7); Basophil# 0.07 X10^3/uL; Basophil% 0.8 % (0-1); Eosinophils% 2.2 % (0-5); Hemoglobin 14.6 g/dL (13.0-16.5); Lymphocyte % 50.4 % (19-41); Mean Corp Hgb Conc 33.2 g/dL (32-36); Mean Corpuscular Hgb 32.2 pg (27.0-32.0); Mean Corpuscular Volume 97.1 fL (80-94); Monocyte# 0.91 X10^3/uL; NRBC Flagged by Analyzer 0 % (0-5); Neutrophil # 3.28 X10^3/uL (2.7-7.7); Neutrophil % 35.8 % (47-70); Platelet Count 414 K/mm3 (150-450); RBC Distribution Width CV 13.6 % (11.6-14.6); Red Blood Count 4.53 M/mm3 (4.6-6.2); White Blood Count 9.1 K/mm3 (4.4-11.0)
--- NOTE | 2021-04-13 23:59 | ED.RN ---
PT THREATENED THIS NURSE SEVERAL TIME STATING I'M GOING TO KILL YOU BITCH. WHEN MY DIES I'M GOING TO GET YOU AND PUT YOU IN MY BASEMENT AND TORTURE YOU.
[2021-04-14] VITALS (10 sets, daily range): BP systolic 86–179; BP diastolic 65–131; PULSE 76–94; RESP 13–18; O2SAT 92–98
[2021-04-14] LABS: Color, Urine Yellow (Yellow); Glucose, Dipstick Normal (Normal); Ketone-Dipstick Negative (Negative); Leukocyte Esterase-Dipstick 25 /ul (Negative); Nitrite-Dipstick Negative (Negative); Occult Blood-Urine Negative /ul (Negative); Protein-Dipstick Negative (Negative); Urine Bilirubin Dipstick Negative (Negative); Urine Clarity Clear (Clear); Urine Urobilinogen Normal (Normal); Urine pH 6.5 (5.0 - 8.0)
[2021-04-14 00:08] LABS: White Blood Cells 0-5 SEEN /hpf (0-5)
[2021-04-14 00:10] LABS: ALB/GLOB Ratio 1.1 RATIO (0.9-2.4); AST(SGOT) 22 U/L (15-37); Alanine Aminotransfer ALT/SGPT 24 U/L (16-61); Albumin, Serum 3.8 g/dL (3.2-5.0); Alkaline Phosphatase 91 U/L (45-117); Anion Gap 18 (5-15); BUN 10 mg/dL (7-18); BUN/Creat Ratio 9.4 RATIO (10-20); Calcium,Total 9.1 mg/dL (8.5-10.1); Chloride 111 mmol/L (98-107); Creatinine, Serum 1.06 mg/dL (0.70-1.30); EST Glomerular Filtration Rate 79 mL/min (>60); Est Glom Filt Rate - Afr Amer 95 mL/min (>60); Estimated Creatinine Clearance 86.08 ml/min; Globulin 3.6 g/dL (2.2-4.2); Glucose 73 mg/dL (74-106); Potassium 3.3 mmol/L (3.5-5.1); Protein, Total 7.4 g/dL (6.4-8.2); Sodium Level 144 mmol/L (136-145)
[2021-04-14 00:13] LABS: Amphetamine Urine VISTA NEGATIVE (<1000 ng/mL); Barbiturate Urine VISTA NEGATIVE (< 200 ng/mL); Benzodiazepine Urine VISTA NEGATIVE (< 200 ng/mL); Cocaine Urine VISTA NEGATIVE (< 300 ng/mL); Ecstacy Urine VISTA NEGATIVE (< 500 ng/mL); Methadone Urine VISTA NEGATIVE (< 300 ng/mL); PCP Urine VISTA NEGATIVE (< 25 ng/mL); THC Urine VISTA NEGATIVE (< 50 ng/mL); Vista UDS pH Range 6
--- NOTE | 2021-04-14 06:02 | ED.RN ---
page out to crisis .
--- NOTE | 2021-04-14 07:05 | ED.RN ---
Updated Dr. Medina about patient being in one leg restraint as PT has not waken up enough to be trustworthy. Dr. Medina agrees that PT is not trustworthy and due to limited staff, PT needs to stay in some restraints.
--- NOTE | 2021-04-14 07:30 | ED.RN ---
PER CRISIS PT IS BENDING AT [facility]
== END 2021-04-14 11:03 ==
PROVIDERS: Emergency Provider Emergency Medicine; PCP Family Medicine; Visit Provider Emergency Medicine
DX: F32.A Depression, unspecified (principal); F25.9 Schizoaffective disorder, unspecified; F10.229 Alcohol dependence with intoxication, unspecified; R45.851 Suicidal ideations; F17.210 Nicotine dependence, cigarettes, uncomplicated; Y90.0 Blood alcohol level of less than 20 mg/100 ml; Z91.51 Personal history of suicidal behavior
CPT/HCPCS: 80053; 80307; 81001; 82077; 85025; 87426; 93005; 96372; 99285

== ENCOUNTER 2021-06-27 13:42 | Emergency (ER) | payer MEDICARE, MEDICAID, SELFPAY ==
[2021-06-27 13:42] VITALS: BP 116/84; PULSE 86; RESP 15; TEMP 35.9; O2SAT 98; BMI 20.2
[2021-06-27] MEDS: Orphenadrine 60 MG/2 ML Ampul IM (17:28)
[2021-06-27] MEDS: Ketorolac 15 MG/ML Vial IM (17:28)
--- NOTE | 2021-06-27 17:40 | EDS_ITS ---
HPI History of Present Illness Chief Complaint: Back [facility] Medical History unable to obtain Home Medications haloperidol 0.5 mg PO QHS 07/30/20 [History Last Taken Unknown] pregabalin 200 mg PO TID 07/30/20 [History Last Taken Unknown] sertraline 100 mg PO DAILY 07/30/20 [History Last Taken Unknown] cariprazine [Vraylar] mg 06/27/21 [History Last Taken Unknown] lorazepam 06/27/21 [History Last Taken Unknown] naproxen [Naprosyn] 500 mg PO BID 10 Days #20 tab 06/27/21 [Rx Last Taken Unknown] trihexyphenidyl 06/27/21 [History Last Taken Unknown] zolpidem 06/27/21 [History Last Taken Unknown] Allergy/AdvReac Type Severity Reaction Status Date / Time benztropine mesylate Allergy Unknown Verified 06/27/21 13:45 [From Cogentin] carbamazepine [From Tegretol] Allergy Other Verified 06/27/21 13:45 ketamine Allergy Anaphylaxis Verified 06/27/21 13:45 prednisone Allergy Other Verified 06/27/21 13:45 Surgical History unable to obtain Social History (Updated 04/13/21 @ 23:[address] Case Medina MD) household members: spouse Smoking Status: Current every day smoker tobacco type: cigarettes alcohol intake: current alcohol intake frequency: other EXAM Physical Exam Const Vital Signs: 06/27/21 13:42 Temperature 96.6 F L Temperature Source Temporal Pulse Rate 86 Respiratory Rate 15 Blood Pressure 116/84 H Blood Pressure Mean 94 Pulse Ox 98 Oxygen Delivery Method Room Air MDM MDM MDM Narrative Medical decision making narrative: 51-year-old male with acute on chronic back pain. Previously used medical marijuana but was taken off of it when he had a psychotic break. Carli presents today with back pain. He has a history of degenerative disc disease. He denies any fever, fall or trauma. No weakness to his legs. No bowel or bladder incontinence. I am evaluating this patient with our nurse practitioner. Patient's exam is unremarkable. Back nontender. No signs of trauma. Heart lung abdominal exams are benign. Both lower extremities are neurovascular intact with 5/5 motor strength. No cauda equina. No saddle anesthesia. Dorsi plantarflexion intact. Patient treated with Naprosyn discharged home with anti-inflammatories and outpatient follow-up. Discharge Plan Triage Chief Complaint: Back ED Midlevel Provider: Hunter Copeland ED Provider: Matt Vega Dx/Rx/DC Orders Clinical Impression: Acute exacerbation of chronic low back pain, Schizoaffective disorder Instructions: ED Back Pain (Acute or Chronic) Prescriptions: New naproxen [Naprosyn] 500 mg tablet 500 mg PO BID 10 Days Qty: 20 RF: 0 No Action haloperidol 0.5 MG tablet 0.5 mg PO QHS RF: 0 sertraline 100 MG tablet 100 mg PO DAILY RF: 0 pregabalin 200 MG capsule 200 mg PO TID RF: 0 trihexyphenidyl 5 mg tablet RF: 0 zolpidem 5 mg tablet RF: 0 lorazepam 1 mg tablet RF: 0 Vraylar 1.5 mg capsule RF: 0 Primary Care Provider: Francoise Martínez Referrals: Francoise Martínez DO [Primary Care Provider] - 1 Week if not improving Activity Restrictions/Additional Instructions: Follow-up with primary care physician. Naprosyn twice a day as needed. Disposition Disposition: Home, Self Care
--- NOTE | 2021-06-27 17:42 | EX.ED.GENINJ ---
HPI History of Present Illness Chief Complaint: Back Narrative Narrative: 51-year-old male with history of psychiatric disease, chronic back pain who is on medicinal marijuana daily every 4 hours presents to the emergency department with acute on chronic back pain. Patient recently was arrested, as well on a 1 year parole, and per his parole rules, he is unable to smoke marijuana. Patient's last smoked marijuana was 1 week ago, patient states during this time he has had continued lower back pain. Patient denies any fevers, chills. Patient denies any bowel or bladder continence, lower extremity weakness. Patient denies any new trauma. [facility] Medical History unable to obtain Home Medications haloperidol 0.5 mg PO QHS 07/30/20 [History Last Taken Unknown] pregabalin 200 mg PO TID 07/30/20 [History Last Taken Unknown] sertraline 100 mg PO DAILY 07/30/20 [History Last Taken Unknown] cariprazine [Vraylar] mg 06/27/21 [History Last Taken Unknown] lorazepam 06/27/21 [History Last Taken Unknown] naproxen [Naprosyn] 500 mg PO BID 10 Days #20 tab 06/27/21 [Rx Last Taken Unknown] trihexyphenidyl 06/27/21 [History Last Taken Unknown] zolpidem 06/27/21 [History Last Taken Unknown] Allergy/AdvReac Type Severity Reaction Status Date / Time benztropine mesylate Allergy Unknown Verified 06/27/21 13:45 [From Cogentin] carbamazepine [From Tegretol] Allergy Other Verified 06/27/21 13:45 ketamine Allergy Anaphylaxis Verified 06/27/21 13:45 prednisone Allergy Other Verified 06/27/21 13:45 Surgical History unable to obtain Social History (Updated 04/13/21 @ 23:[address] Case Medina MD) household members: spouse Smoking Status: Current every day smoker tobacco type: cigarettes alcohol intake: current alcohol intake frequency: other ROS ROS ED ROS Narrative Constitutional: Negative for fever, chills, weight loss or gain, weakness Eyes: Negative for vision loss, vision change, double vision ENT: Negative for any hearing changes, ringing in the ears, dizziness, discharge, pain Nose: Negative for any congestion, runny nose, sinus pain, allergies Throat: Negative for any sore throat hoarseness, voice changes, Cardiovascular: Negative for any chest pain, tightness, palpitations, racing heartbeat Respiratory: Negative for any coughs, sputum production, coughing, hemoptysis, shortness of breath, shortness of breath on exertion, Gastrointestinal: Negative for any abdominal pain, nausea, vomiting, diarrhea, constipation, blood in stool, blood in vomit : Negative for any urinary frequency, incontinence, dysuria, retention, blood in urine Muscle skeletal: Negative for any muscle joint pain, stiffness, myalgias, arthralgias, neck pain. Positive for back pain Neurological: Negative for any headache, head injury, dizziness, syncope, numbness or tingling Skin: Negative for any rashes, lumps, itching, abrasions, lacerations Psychiatric: Negative for any depression, anxiety, stress, suicidal ideation, homicidal ideation Hematologic: Negative for any easy bruising, excessive bruising, easy bleeding Allergies: Negative for any eczema, hives, rash EXAM Physical Exam Const Vital Signs: 06/27/21 13:42 Temperature 96.6 F L Temperature Source Temporal Pulse Rate 86 Respiratory Rate 15 Blood Pressure 116/84 H Blood Pressure Mean 94 Pulse Ox 98 Oxygen Delivery Method Room Air Positive well nourished and well developed General Appearance ED: well developed HEENT atraumatic Eyes PERRL and EOMs intact bilaterally Neck full ROM General: tenderness Chest Wall inspection of chest normal and palpation of chest normal Resp normal respiratory effort and clear to auscultation bilaterally Cardio regular rhythm Rate: regular rate GI normal to inspection, nondistended, normoactive bowel sounds Back/Spine normal to inspection and no thoracic nor lumbar tenderness Back/Spine Narrative: Patient does have pain with any bending or rotation. Negative for any lower extremity weakness. Negative for any midline cervical tenderness. Negative for any red flag signs. Extremity normal to inspection and full ROM Neuro oriented x3 Sensorium / Orientation: alert and oriented to person Psych mental status grossly normal Skin no rashes or lesions noted MDM MDM Treatment and Re-Evaluation Narrative: Patient appears well, patient appears nontoxic, vital signs are stable. Patient presents to the emergency department with concerns of acute on chronic lower back pain, patient is unable to use marijuana secondary to being on parole for 1 year. Last patient smoked marijuana was 1 week ago. Patient did ask for a shot of morphine however due to the risk first benefit, the patient will be given Toradol, Norflex injections, patient be given Naprosyn for daily use for his chronic pain. Patient will follow up with his primary care provider and is instructed to follow-up as needed. Patient's physical exam was negative for any red flag signs, no indication of any cauda equina, spinal abscess. Patient stable for discharge Discharge Plan Triage Chief Complaint: Back ED Midlevel Provider: Hunter Copeland ED Provider: Matt Vega Dx/Rx/DC Orders Clinical Impression: Acute exacerbation of chronic low back pain, Schizoaffective disorder Instructions: ED Back Pain (Acute or Chronic) Prescriptions: New naproxen [Naprosyn] 500 mg tablet 500 mg PO BID 10 Days Qty: 20 RF: 0 No Action haloperidol 0.5 MG tablet 0.5 mg PO QHS RF: 0 sertraline 100 MG tablet 100 mg PO DAILY RF: 0 pregabalin 200 MG capsule 200 mg PO TID RF: 0 trihexyphenidyl 5 mg tablet RF: 0 zolpidem 5 mg tablet RF: 0 lorazepam 1 mg tablet RF: 0 Vraylar 1.5 mg capsule RF: 0 Primary Care Provider: Francoise Martínez Referrals: Francoise Martínez DO [Primary Care Provider] - 1 Week if not improving Activity Restrictions/Additional Instructions: Follow-up with primary care physician. Naprosyn twice a day as needed. Disposition Disposition: Home, Self Care
== END 2021-06-27 18:18 | disposition home or self-care (01) ==
PROVIDERS: Emergency Provider Emergency Medicine; PCP Family Medicine; Visit Provider Emergency Medicine
DX: M54.50 Low back pain, unspecified (principal); F25.9 Schizoaffective disorder, unspecified; G89.29 Other chronic pain; F17.210 Nicotine dependence, cigarettes, uncomplicated; Z79.899 Other long term (current) drug therapy
CPT/HCPCS: 96372; 99282

== ENCOUNTER 2022-05-06 13:53 | Emergency (ER) | payer MEDICARE, MEDICAID, SELFPAY ==
[2022-05-06 13:53] VITALS: BP 113/95; PULSE 95; RESP 16; TEMP 37; O2SAT 99; BMI 20.2
--- NOTE | 2022-05-06 13:58 | ED.RN ---
MOTHER'S PHONE NUMBER [phone]
--- NOTE | 2022-05-06 14:20 | ED.RN ---
PT'S NIECE DELTA JULIAN [phone] CAME TO ED, STATES PT'S PSYCHIATRIST AT [facility] IS WILLING TO SEE HIM TODAY. SHE IS WILLING TO TAKE RESPONSIBILITY FOR PT AND WILL BE RIDING WITH PT AND HIS MOTHER TO MAKE SURE HE GETS TO [facility] SAFELY. NIECE APPEARS KNOWLEDGEABLE ABOUT PT'S CURRENT CONDITION AND HISTORY, STATES HE'S BEEN HAVING HALLUCINATIONS THE PAST TWO DAYS, MAY BE RELATED TO RECENT MD CHANGES.
== END 2022-05-06 15:01 | disposition left against medical advice (07) ==
LOC: ED 15:01
PROVIDERS: PCP Family Medicine
DX: R41.0 Disorientation, unspecified (principal); Z53.21 Procedure and treatment not carried out due to patient leaving prior to being seen by health care provider

== ENCOUNTER 2024-07-31 17:21 | Emergency (ER) | payer MEDICARE, SELFPAY ==
[2024-07-31 17:23] VITALS: BP 119/106; PULSE 119; RESP 22; TEMP 36.6; O2SAT 99
--- NOTE | 2024-07-31 17:48 | EKG12_ITS ---
Test Reason : PLACEMENT Blood Pressure : */* mmHG Vent. Rate : 95 BPM Atrial Rate : 95 BPM P-R Int : 138 ms QRS Dur : 102 ms QT Int : 356 ms P-R-T Axes : 53 74 52 degrees QTcB Int : 447 ms Normal sinus rhythm Inferior infarct , age undetermined Abnormal ECG Confirmed by JANNY HASTINGS, TRAVIS ([id number]), avid editor LATISHA FERRERA ([id number]) on 08/03/2024 11:54:56 AM Referred By: Confirmed By: TRAVIS SOLIMAN MD
[2024-07-31 17:58] LABS: Absolute Lymphocyte Count 1.37 X10^3/uL (0.83-4.51); Absolute Neutrophil Count 12.8 X10^3/uL (2.0-7.7); Basophil# 0.07 X10^3/uL; Basophil% 0.5 % (0-1); Eosinophil# 0.01 X10^3/uL; Eosinophils% 0.1 % (0-5); Hemoglobin 14.7 g/dL (13.0-16.5); Lymphocyte # 1.37 X10^3/ul (0.83-4.51); Lymphocyte % 8.9 % (19-41); Mean Corp Hgb Conc 35.9 g/dL (32-36); Mean Corpuscular Hgb 33.6 pg (27.0-32.0); Mean Corpuscular Volume 93.6 fL (80-94); Mean Platelet Vol. 8.8 fl (6.2-12.0); Monocyte# 1.14 X10^3/uL; Monocyte% 7.4 % (0-10); NRBC Flagged by Analyzer 0 % (0-5); Neutrophil # 12.76 X10^3/uL (2.7-7.7); Neutrophil % 82.8 % (47-70); Platelet Count 521 K/mm3 (150-450); RBC Distribution Width CV 13.2 % (11.6-14.6); RBC Distribution Width SD 45.3 fl (35.1-43.9); Red Blood Count 4.38 M/mm3 (4.6-6.2); White Blood Count 15.4 K/mm3 (4.4-11.0)
[2024-07-31 18:17] LABS: Amphetamine Urine NEGATIVE (<1000 ng/mL); Barbiturate Urine NEGATIVE (< 200 ng/mL); Benzodiazepine Urine NEGATIVE (< 200 ng/mL); Buprenorphine Urine NEGATIVE (< 200 ng/mL); Cocaine Urine NEGATIVE (< 300 ng/mL); Fentanyl, Urine NEGATIVE; Methadone Urine NEGATIVE (< 300 ng/mL); Opiates Urine NEGATIVE (< 300 ng/mL); Oxycodone, Urine NEGATIVE (< 100 ng/mL); PCP Urine NEGATIVE (< 25 ng/mL); THC Urine PRESUMPTIVE POSITIVE (< 50 ng/mL)
[2024-07-31 18:18] LABS: ALB/GLOB Ratio 1.7 RATIO (0.9-2.4); AST(SGOT) 60 U/L (<=37); Alanine Aminotransfer ALT/SGPT 25 U/L (<=46); Albumin, Serum 4.8 g/dL (3.5-5.0); Alcohol, Blood (Medical)-Serum < 10.1 mg/dL (<=10.0); Alkaline Phosphatase 98 U/L (40-129); Anion Gap 19 (5-15); BUN 21 mg/dL (4-19); Calcium,Total 10.5 mg/dL (7.6-11.0); Carbon Dioxide 18.3 mmol/L (21.0-32.0); Chloride 105 mmol/L (98-108); EST Glomerular Filtration Rate 55 (>60); Globulin 2.9 g/dL (2.2-4.2); Glucose 113 mg/dL (70-99); Potassium 3.9 mmol/L (3.3-5.1); Protein, Total 7.7 g/dL (5.9-8.4); Sodium Level 141 mmol/L (133-145); Total Bilirubin 0.84 mg/dL (0.00-1.30)
--- NOTE | 2024-07-31 18:25 | CT_ITS ---
PROCEDURE: ABDOMEN/PELVIS WITHOUT CONT 07/31/2024 REASON FOR EXAM: HEMATURIA, REPORTS A STENT IN PLACE TECHNIQUE: Abdomen and pelvis CT without intravenous contrast. Noncontrast technique limits evaluation of the abdominal and pelvic viscera. Coronal and Sagittal reconstruction series were provided. One or more dose reduction techniques were used (e.g., Automated exposure control, adjustment of the mA and/or kV according to patient size, use of iterative reconstruction technique). PATIENT PREPARATION: Per protocol ORAL CONTRAST TYPE: None. AMOUNT: mL FINDINGS: Lung bases: Lung bases are clear. Liver: Normal size. No obvious mass. Gallbladder: Unremarkable. Spleen: Normal size. Pancreas: Normal size. No surrounding inflammation. Adrenals: Unremarkable. Kidneys: Normal right kidney. Left ureteral stent with a 3 mm stone in the proximal left ureter and mild hydronephrosis. Bladder: Unremarkable Reproductive Organs: Unremarkable Bowel: No bowel obstruction. Appendix: Unremarkable. Lymph nodes: Unremarkable. Vasculature: The abdominal aorta and IVC contours are normal. Noncontrast technique limits evaluation. Peritoneum / Retroperitoneum: Unremarkable. Bones: Unremarkable. CT/Abdomen/Pelvis without Cont IMPRESSION: Left ureteral stent with a 3 mm stone in the proximal left ureter with mild hyd ronephrosis. Reading Location: [id number]
[2024-07-31 18:42] LABS: CPK Total, Creatine Kinase 2110 U/L (24-195)
[2024-07-31 18:55] VITALS: BMI 18.1
[2024-07-31 18:55] LABS: Bacteria 0 SEEN /hpf (None Seen); Mucous, Urine 0 SEEN /hpf (<or=2+)
[2024-07-31] MEDS: 0.9% Normal Saline (1000mL) 1,000 ML 999 ML IV (18:55)
[2024-07-31 18:56] LABS: Color, Urine Red (Yellow); Glucose, Dipstick Normal (Normal); Ketone-Dipstick 15 mg/dl (Negative); Leukocyte Esterase-Dipstick 100 /ul (Negative); Nitrite-Dipstick Negative (Negative); Occult Blood-Urine 250 /ul (Negative); Protein-Dipstick 500 mg/dl (Negative); Urine Bilirubin Dipstick Negative (Negative); Urine Clarity Turbid (Clear); Urine Urobilinogen Normal (Normal); Urine pH 6.5 (5.0 - 8.0)
[2024-07-31 18:57] VITALS: BP 136/96; PULSE 97; RESP 18; O2SAT 96
[2024-07-31 19:08] LABS: Red Blood Cells-Urine > 100 SEEN /hpf (0-5); White Blood Cells 50-100 SEEN /hpf (0-5)
[2024-07-31 19:09] LABS: Hyaline Cast 0-5 SEEN /lpf (0-5); Renal Epithelial Cells 0-5 SEEN /hpf (0-5); Squamous Epithelial Cells - UA 0-5 SEEN /hpf (0-5)
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
[2024-07-31 19:19] LABS: Lactic Acid 1.2 mmol/L (0.0-2.0)
[2024-07-31 20:00] VITALS: BP 118/87; PULSE 78; RESP 18; O2SAT 98
[2024-07-31 20:07] VITALS: BP 118/87; PULSE 78; RESP 18; TEMP 36.8; O2SAT 98
[2024-07-31 21:00] VITALS: BP 136/98; PULSE 90; RESP 17; O2SAT 98
[2024-07-31 22:00] VITALS: BP 142/92; PULSE 91; RESP 16; O2SAT 98
[2024-07-31] MEDS: Haloperidol Lactate 5 MG/ML Vial 2 MG IV (22:19)
== END 2024-07-31 23:16 | disposition short-term general hospital (02) ==
PROVIDERS: Emergency Provider Emergency Medicine; PCP Family Medicine; Visit Provider Emergency Medicine
DX: F23 Brief psychotic disorder (principal); F25.0 Schizoaffective disorder, bipolar type; M62.82 Rhabdomyolysis; N13.2 Hydronephrosis with renal and ureteral calculous obstruction; F41.9 Anxiety disorder, unspecified; N17.9 Acute kidney failure, unspecified; R31.0 Gross hematuria; F17.210 Nicotine dependence, cigarettes, uncomplicated; Z96.0 Presence of urogenital implants; Z79.899 Other long term (current) drug therapy
CPT/HCPCS: 74176; 80053; 80307; 81001; 82077; 82550; 83605; 85025; 93005; 96361; 96374; 99285; A4216